=== PATIENT | male | born 1950 | race Two or more races ===

== ENCOUNTER 2023-12-31 13:56 | Emergency (ER) | payer OTHER ==
[~2023-12-31] VITALS: Ht 175.3 cm; Wt 71.0 kg
[~2023-12-31 13:56] MED LIST: ASPI1TAB20 PO; ATOR-507 PO; CHOL20007 PO; FAMO20TA10 PO; METO25TA5 PO; TAMS0.4C36 PO; TRAM50TA2 PO; ZOLP10TA PO
[2023-12-31] MEDS: SODIUM CHLORIDE 0.9% 1,000 ML IVB ONE (16:30)
[2023-12-31 16:41] LABS: Basophils # (auto) 0.1 10 ^3/uL (0-0.2); Basophils % (auto) 1.7 % (0.0-2.0); Eosinophils # (auto) 0.3 10 ^3/uL (0-0.8); Eosinophils % (auto) 4.5 % (0.0-7.0); Hematocrit 24.5 % (41.0-53.0); Hemoglobin 8.2 g/dL (13.5-17.5); Lymphocytes # (auto) 0.8 10 ^3/uL (0.4-5.4); Lymphocytes % (auto) 12.3 % (10.0-50.0); Mean Corpuscular Hemoglobin 27.9 pg (28.0-32.0); Mean Corpuscular Hgb Conc. 33.3 g/dL (32.0-36.0); Mean Corpuscular Volume 83.6 fL (80.0-100.0); Monocytes # (auto) 0.6 10 ^3/uL (0-1.3); Monocytes % (auto) 8.6 % (0.0-12.0); Neutrophils # (auto) 4.7 10 ^3/uL (1.6-8.6); Neutrophils % (auto) 72.9 % (37.0-80.0); Red Blood Cells 2.93 10^6/uL (4.5-5.90); Red Cell Distribution Width 17.9 % (11.8-14.3); White Blood Cell 6.5 10^3/uL (4.4-10.8)
[2023-12-31 17:02] LABS: Alanine Aminotransferase 12 U/L (7-40); Albumin 3.9 g/dL (3.2-4.8); Alkaline Phosphatase 87 U/L (46-116); Anion Gap 11 (5-15); Aspartate Aminotransferase 10 U/L (13-40); BUN/Creatinine Ratio 17.3 (10.0-20.0); Bilirubin, Total 0.8 mg/dL (0.2-1.0); Blood Urea Nitrogen 23 mg/dL (9-23); Calcium 9.5 mg/dL (8.5-10.1); Carbon Dioxide 19 mmol/L (20-30); Chloride 108 mmol/L (98-107); Glucose 143 mg/dL (74-106); Potassium 4.4 mmol/L (3.5-5.1); Sodium 138 mmol/L (136-145); Total Protein 6.5 g/dL (5.7-8.2)
[2023-12-31 17:14] LABS: INR 1.13 (0.9-1.15); Partial Thromboplastin Time 28.2 SEC (24.5-34.5); Prothrombin Time 11.9 sec (9.3-11.8)
[2023-12-31 20:19] VITALS: BP 142/54; PULSE 72; RESP 18; TEMP 97.9; O2SAT 97
[2024-01-01] MEDS ORDERED: ceFAZolin 1GM/50ML 50 ML IV ONE (06:00)
== END 2023-12-31 20:43 | disposition short-term general hospital (02) ==
LOC: ER 13:56
DX: R31.0 Gross hematuria (principal); I10 Essential (primary) hypertension; Z96.0 Presence of urogenital implants; Z86.73 Personal history of transient ischemic attack (TIA), and cerebral infarction without residual deficits
CPT/HCPCS: 36415; 74176; 80053; 83880; 85025; 85610; 85730; 86850; 86900; 86901; 96360; 99285; J7030

== ENCOUNTER 2024-11-06 10:20 | Inpatient (IN) | payer OTHER ==
[~2024-11-06] VITALS: Ht 175.3 cm; Wt 61.3 kg
[~2024-11-06 10:20] MED LIST changes: -TAMS0.4C36 PO; +TAMS0.4C39 PO
--- NOTE | 2024-11-06 10:43 | ECG ---
[facility] Test Date: 2024-11-06 Test Time: 10:22:05 Pat Name: GUSTAVO LOW Department: ED Room: Gender: M Manager Acute: ISAI : 1950 Requested By: QUIANA ANDERSON Order Number: [id number] Reading MD: Prabhu Harrell Measurements Intervals Atkins Rate: 70 P: 0 MA: 0 QRS: 81 QRSD: 199 T: -75 QT: 496 QTc: 536 Interpretive Statements Accelerated junctional rhythm LVH with secondary repolarization abnormality Prolonged QT interval Baseline wander in lead(s) II,III,aVF,V5 Electronically Signed On 11-06-2024 13:17:04 PDT by Prabhu Harrell Please click the below link to view image of tracing.
[2024-11-06 10:50] VITALS: PULSE 104; RESP 15; O2SAT 96
[2024-11-06 10:52] LABS: Basophils # (auto) 0.1 10 ^3/uL (0-0.2); Basophils % (auto) 0.5 % (0.0-2.0); Eosinophils # (auto) 0.1 10 ^3/uL (0-0.8); Eosinophils % (auto) 0.7 % (0.0-7.0); Hematocrit 32.2 % (41.0-53.0); Hemoglobin 10.5 g/dL (13.5-17.5); Lymphocytes # (auto) 0.7 10 ^3/uL (0.4-5.4); Lymphocytes % (auto) 5.7 % (10.0-50.0); Mean Corpuscular Hemoglobin 27.6 pg (28.0-32.0); Mean Corpuscular Hgb Conc. 32.5 g/dL (32.0-36.0); Mean Corpuscular Volume 84.9 fL (80.0-100.0); Monocytes % (auto) 8.3 % (0.0-12.0); Neutrophils # (auto) 10.7 10 ^3/uL (1.6-8.6); Neutrophils % (auto) 84.8 % (37.0-80.0); Platelet Count (auto) 268 10^3/uL (140-450); Red Blood Cells 3.79 10^6/uL (4.5-5.90); Red Cell Distribution Width 15.2 % (11.8-14.3); White Blood Cell 12.7 10^3/uL (4.4-10.8)
--- NOTE | 2024-11-06 10:58 | DVH ---
EXAM: XY CHEST PORTABLE HISTORY: syncope COMPARISON: None TECHNIQUE: Portable upright AP view of the chest was performed. FINDINGS: No pneumothorax, consolidative infiltrates, or pulmonary edema. The heart is borderline enlarged. The re are postoperative changes of median sternotomy and left chest AICD. IMPRESSION: Postoperative changes of the heart without evidence of acute intrathoracic process.
--- NOTE | 2024-11-06 11:18 | ED.PDOC ---
HPI (NEURO) HPI Comments 74y M who presents to the ED via EMS for chief complaint of syncope. Per EMS, pt is resident at [facility] recovering from hip surgery 2 weeks prior and while doing PT, pt had syncopal episode. Pt was assisted by staff and noted pt was not responding for a few seconds but became alert and oriented while sitting on the ground. EMS was called to the scene and upon arrival, pt was alert and oriented and EKG was done which showed STEMI and pt was brought to the ED with noted pt being given 324 ASA prior to ED arrival. Pt in the ED, denies any chest pain upon arrival and repeat EKG did not show STEMI and STEMI alert was cancelled. Pt now in the ED, otherwise denies any other symptoms. Pt has noted stable vitals in the ED, with noted temp of 97/9 F, BP 117/65, 02 sat of 98% on room air, and heart rate of 76. Pt has noted history of CABG, AFIB on pacemaker, HTN , DM, and HLD. Pt denies any other symptoms at this time. Chief Complaint: Syncope Time Seen by MD: 11:14 Primary Care Provider: JABARI Reviewed Notes: Home Health Attendant Notes, Medications, Allergies Information Source: Patient Mode of Arrival: EMS Brought in by: EMS Past Medical History PAST MEDICAL HISTORY: CAD, CHF, CVA, HTN Surgical History: CABG, Hernia Repair Surgical History (Other): Hip surgery Family History Family History: Unknown Social History Smoker: Non-Smoker Alcohol: Occasionally Drugs: Denies Drug Use Lives In: Home Constitutional: reports: malaise, weakness; denies: chills, diaphoresis, fatigue, fever, sweats, others EENTM: denies: blurred vision, double vision, ear bleeding, ear discharge, ear drainage, ear pain, ear ringing, eye pain, eye redness, hearing loss, mouth pain, mouth swelling, nasal discharge, nose bleeding, nose congestion, nose pain, photophobia, tearing, throat pain, throat swelling, voice changes, others Respiratory: denies: cough, hemoptysis, orthopnea, SOB at rest, shortness of breath, SOB with excertion, stridor, wheezing, others Cardiovascular: denies: chest pain, dizzy spells, diaphoresis, Dyspnea on exertion, edema, irregular heart beat, left arm pain, lightheadedness, palpitations, PND, syncope, others Gastrointestinal: denies: abdomen distended, abdominal pain, blood streaked bowels, constipated, diarrhea, dysphagia, difficulty swallowing, hematemesis, melena, nausea, poor appetite, poor fluid intake, rectal bleeding, rectal pain, vomiting, others Genitourinary: denies: burning, dysuria, flank pain, frequency, hematuria, incontinence, penile discharge, penile sore, pain, testicle pain, testicle swelling, urgency, others Neurological: reports: others (syncope); denies: dizziness, fainting, headache, left sided numbness, left sided weakness, numbness, paresthesia, pre-existing deficit, right sided numbness, right sided weakness, seizure, speech problems, tingling, tremors, weakness Musculoskeletal: denies: back pain, gout, joint pain, joint swelling, muscle pain, muscle stiffness, neck pain, others Integumetry: denies: bruises, change in color, change in hair/nails, dryness, l aceration, lesions, lumps, rash, wounds, others Allergic/Immunocompromised: denies: Difficulty Healing, Frequent Infections, Hives, Itching, others Hematologic/Lymphatic: denies: anemia, blood clots, easy bleeding, easy bruising, swollen glands, others Endocrine: denies: excessive hunger, excessive sweating, excessive thirst, excessive urination, flushing, intolerance to cold, intolerance to heat, unexplained weight gain, unexplained weight loss, others Psychiatric: denies: anxiety, bipolar disorder, depression, hopeless, panic disorder, schizophrenia, sleepless, suicidal, others All Other Systems: Reviewed and Negative Physical Exam General Appearance: No Apparent Distress HEENT: PERRL/EOMI, Other (Moist mucous membranes) Neck: Full Range of Motion, Normal Inspection Respiratory: Lungs Clear, No Accessory Muscle Use, No Respiratory Distress, Normal Breath Sounds Cardiovascular: No Edema, No JVD, Regular Rate/Rhythm Breast Exam: Deferred Gastrointestinal: Non Tender, Soft Genitalia: Deferred Pelvic: Deferred Rectal: Deferred Extremities: Normal inspection, Normal range of motion, Non-tender, No pedal edema Neurologic: Alert (Oriented x4), Normal Affect, Normal Mood, Other (Moves all extremities) Cerebellar Function: NOT DONE Reflexes: NOT DONE Skin: Dry, Pallor, Warm Lymphatic: NOT DONE EKG EKG : Comments Accelerated junctional rhythm, rate 70, QRS prolonged at 199, QTC prolonged at 536, LVH with secondary repolarization abnormality, nonspecific ST elevation in leads 2, 3, AVF and upsloping ST elevations in leads V1 through V 3 Was a procedure done? Was a procedure done?: No Differential Diagnosis (SZ) Seizure: CVA/TIA, Hypocalcemia, Hypoglycemia, Hyponatremia, Idiopathic, Syncope General Weakness: Anemia, Dehydration, Electrolyte imbalance, Encephalopathy, Hypoglycemia, Hypotension, Myocardial infarction, Renal failure, Other (CHF, arrhythmia) Headache: Closed Head Injury X-Ray, Labs, Meds, VS Vital Signs Date Time Temp Pulse Resp B/P (MAP) Pulse Ox O2 Delivery O2 Flow Rate FiO2 11/06/24 11:21 68 11/06/24 10:25 97.9 76 18 117/65 (82) 98 97.9 11/06/24 10:22 70 Lab Test 11/06/24 12:28 11/06/24 11:25 11/06/24 11:05 11/06/24 10:25 Range/Units Urine Color Pending Urine Clarity Pending Urine pH Pending Urine Specific [place] Pending Urine Protein Pending Urine Ketones Pending Urine Blood Pending Urine Nitrite Pending Urine Bilirubin Pending Urine Urobilinogen Pending Urine Leukocyte Esterase Pending Urine RBC Pending Urine Microscopic WBC Pending Urine Squamous Epithelial Cells Pending Urine Bacteria Pending Urine Glucose Pending Troponin I High Sensitivity 29 24 </=54 ng/L Lactic Acid Level 1.7 0.4-2.0 mmol/L White Blood Count 12.7 H 4.4-10.8 10^3/uL Red Blood Count 3.79 L 4.5-5.90 10^6/uL Hemoglobin 10.5 L 13.5-17.5 g/dL Hematocrit 32.2 L 41.0-53.0 % Mean Corpuscular Volume 84.9 80.0-100.0 fL Mean Corpuscular Hemoglobin 27.6 L 28.0-32.0 pg Mean Corpuscular Hemoglobin Concent 32.5 32.0-36.0 g/dL Red Cell Distribution Width 15.2 H 11.8-14.3 % Platelet Count 268 140-450 10^3/uL Mean Platelet Volume 7.7 6.9-10.8 fL Neutrophils (%) (Auto) 84.8 H 37.0-80.0 % Lymphocytes (%) (Auto) 5.7 L 10.0-50.0 % Monocytes (%) (Auto) 8.3 0.0-12.0 % Eosinophils (%) (Auto) 0.7 0.0-7.0 % Basophils (%) (Auto) 0.5 0.0-2.0 % Neutrophils # (Auto) 10.7 H 1.6-8.6 10 ^3/uL Lymphocytes # (Auto) 0.7 0.4-5.4 10 ^3/uL Monocytes # (Auto) 1.0 0-1.3 10 ^3/uL Eosinophils # (Auto) 0.1 0-0.8 10 ^3/uL Basophils # (Auto) 0.1 0-0.2 10 ^3/uL Nucleated Red Blood Cells 0.0 % Sodium Level Pending Potassium Level Pending Chloride Level Pending Carbon Dioxide Level Pending Anion Gap Pending Blood Urea Nitrogen Pending Creatinine Pending Glomerular Filtration Rate Calc Pending BUN/Creatinine Ratio Pending Serum Glucose Pending Calcium Level Pending Total Bilirubin Pending Aspartate Amino Transferase (AST) Pending Alanine Aminotransferase (ALT) Pending Alkaline Phosphatase Pending B-Type Natriuretic Peptide 467.71 0-100 pg/mL Total Protein Pending Albumin Pending Current Medications Medications (Trade) Dose Ordered Sig/Deny Route Start Time Stop Time Status Last Admin Sodium Chloride 500 ml @ 500 mls/hr Q1H ONCE IV 11/06/24 10:45 11/06/24 11:44 DC 11/06/24 11:20 [place] [id number] Ph: [phone] DIAGNOSTIC IMAGING Diagnostic Imaging Report : [id number] Signed PATIENT: GUSTAVO LOW ACCT: [id number] UNIT: [id number] : 1950 LOC: ER ROOM / BED: / AGE / SEX: 74 / M ADM STATUS: REG ER SERVICE 1031 ORDERING PHYSICIAN: QUIANA SALDAÑA MD PROCEDURE(s): CXRP - CHEST PORTABLE REASON: syncope ORDER NUMBER(s): [id number], ACCESSION NUMBER(s): [id number] EXAM: XY CHEST PORTABLE HISTORY: syncope COMPARISON: None TECHNIQUE: Portable upright AP view of the chest was performed. FINDINGS: No pneumothorax, consolidative infiltrates, or pulmonary edema. The heart is borderline enlarged. There are postoperative changes of median sternotomy and left chest AICD. IMPRESSION: Postoperative changes of the heart without evidence of acute intrathoracic process. ATED BY: MATTHEW BOLIVAR MD DICTATED DATE/TIME: 11/06/24 105 SIGNED BY: MATTHEW BOLIVAR MD SIGNED DATE/TIME: 11/06/24 105 CC: PROCEDURE(s): HWOCT - HEAD WITHOUT CONTRAST REASON: syncope ORDER NUMBER(s): [id number], ACCESSION NUMBER(s): [id number] EXAM: CT HEAD WITHOUT CONTRAST HISTORY: syncope COMPARISON: None TECHNIQUE: Axial images of the head were obtained and reformatted in coronal and sagittal planes. All CT scans at this medical facility are performed using dose modulation techniques as appropriate to a performed exam including the following: Automated exposure control was utilized; adjustment of the MA and/or KV according to patient size; and use of iterative reconstruction technique. CT Dose: CTDI volume is 91 mGy. Dose-length product is 1986 mGy*cm FINDINGS: There is no evidence of acute intracranial hemorrhage, mass, mass effect midline shift. There is no hydrocephalus or extra-axial fluid collection. There is a large right frontal parietal lobe chronic infarct with associated enc ephalomalacia. There is a small chronic infarct in the right occipital lobe and right thalamus. There are chronic microvascular ischemic changes in the supratentorial white matter. The visualized paranasal sinuses and mastoid air cells are clear. The calvarium is intact. IMPRESSION: 1. No acute intracranial process. 2. Chronic ischemic changes as described above. HS:Y X-Ray, Labs, Meds, VS Comment 74-year-old male with a history of hypertension, CAD status post quadruple bypass, CHF with 25% ejection fraction and status post recent hip surgery brought in by EMS after a syncopal episode while undergoing physical therapy Vitals unremarkable Exam unremarkable Rhythm strip independently interpreted by me: Accelerated junctional rhythm, rate 70 CT head and chest x-ray unremarkable CBC remarkable for WBC 12.7, CMP pending, BNP 467.71, troponin negative x2, lactate normal, UA pending Patient treated with the following in the ED: Case discussed with Dr. Cid on-call for STEMI, who reviewed the patient's EKG and determined the inferior ST-elevation was nonspecific, not consistent with STEMI. He recommended cardiac workup with serial troponins and repeat EKG. Repeat EKG was unchanged. 500 cc 0.9 normal saline IV bolus On re-evaluation, patient was alert with stable vitals. Old EKG dated 11/16/2015 showed a sinus or ectopic atrial rhythm, PVCs, prolonged [place] interval, incomplete left bundle-branch block, LVH with secondary repolarization abnormality, anterior ST-elevation, probably due to LVH. Patient has significantly different EKG findings today, which may have contributed to his syncopal episode. Plan is to admit the patient for Cardiology evaluation. Time of 1ST Reevaluation: 11:45 Reevaluation 1ST: Unchanged Patient Education/Counseling: Diagnosis, Treatment Family Education/Counseling: No Family Present Departure 1 Departure Time of Disposition: 12:30 Impression: Primary Impression: Syncope Qualified Codes: R55 - Syncope and collapse Additional Impression: Junctional rhythm Disposition: ADMITTED INPATIENT Admit to: Tele Condition: Guarded Critical Care Note Critical Care Time?: No Stability Stability form required: No Heart Score Heart Score: Heart Score Response (Comments) Value History Slightly Suspicious [address]-Deviation 2 Age >65 2 Risk Factors >3 or Hx ASHD 2 Troponin Normal limit 0 Total 6 I personally scribed for QUIANA SALDAÑA MD ([email or web address]) on 11/06/24 at 11:18. Electronically submitted by V[facility]nu Sol[facility] ([facility] I personally scribed for QUIANA SALDAÑA MD ([email or web address]) on 11/06/24 at 12:39. Electronically submitted by Vishnu Solorio ([facility] QUIANA SALDAÑA MD November 06, 2024 11:18
[2024-11-06] MEDS: SODIUM CHLORIDE 0.9% 500 ML IV ONE (11:20)
--- NOTE | 2024-11-06 11:26 | DVH ---
EXAM: CT HEAD WITHOUT CONTRAST HISTORY: syncope COMPARISON: None TECHNIQUE: Axial images of the head were obtained and reformatted in coronal and sagittal planes. All CT scans at this medical facility are performed using dose modulation techniques as appropriate t o a performed exam including the following: Automated exposure control was utilized; adjustment of th e MA and/or KV according to patient size; and use of iterative reconstruction technique. CT Dose: CTDI volume is 91 mGy. Dose-length product is 1986 mGy*cm FINDINGS: There is no evidence of acute intracranial hemorrhage, mass, mass effect midline shift. There is no h ydrocephalus or extra-axial fluid collection. There is a large right frontal parietal lobe chronic i nfarct with associated encephalomalacia. There is a small chronic infarct in the right occipital lobe and right thalamus. There are chronic microvascular ischemic changes in the supratentorial white mat ter. The visualized paranasal sinuses and mastoid air cells are clear. The calvarium is intact. IMPRESSION: 1. No acute intracranial process. 2. Chronic ischemic changes as described above. HS:Y
[2024-11-06 12:44] LABS: Urine Bacteria FEW /hpf (None Seen); Urine Blood Negative /uL (Negative); Urine Budding Yeast MANY /hpf (None Seen); Urine Clarity Turbid (Clear); Urine Color Light-Yellow (Yellow); Urine Protein, UAD 1+ (Negative); Urine Specific Gravity 1.019 (1.001-1.035); Urine Squamous Epithelial Cell None Seen /hpf (<5); Urine Urobilinogen Normal (Negative); Urine WBC 80 /HPF (0-3)
[2024-11-06 12:52] LABS: Albumin 3.6 g/dL (3.2-4.8); Alkaline Phosphatase 110 U/L (46-116); Anion Gap 12 (5-15); BUN/Creatinine Ratio 30.7 (10.0-20.0); Bilirubin, Total 0.4 mg/dL (0.2-1.0); Calcium 9.4 mg/dL (8.7-10.4); Carbon Dioxide 19 mmol/L (20-31); Chloride 108 mmol/L (98-107); Glucose 275 mg/dL (74-106); Potassium 3.6 mmol/L (3.5-5.1); Sodium 139 mmol/L (136-145); Total Protein 6.1 g/dL (5.7-8.2)
[2024-11-06 12:53] LABS: Alanine Aminotransferase 155 U/L (7-40); Aspartate Aminotransferase 101 U/L (13-40); Blood Urea Nitrogen 55 mg/dL (9-23)
[2024-11-06] MEDS ORDERED: NITROGLYCERIN 0.4 MG SL TAB SL PRN (13:30)
[2024-11-06] MEDS ORDERED: ONDANSETRON HCL 4 MG/2 ML VIAL IV PRN (13:30)
[2024-11-06] MEDS ORDERED: MORPHINE SULFATE INJ 2 MG/ml SYRG IV PRN (13:30)
[2024-11-06] MEDS ORDERED: DEXTROSE (50%) 50ML SYRG IV PRN (13:30)
[2024-11-06] MEDS ORDERED: PIPERACILLIN-TAZOB 3.375GM 100 ML IV SCH (14:00)
[2024-11-06] MEDS ORDERED: CARV12.544 PO (14:12)
[2024-11-06] MEDS ORDERED: FURO20TA4 PO (14:12)
[2024-11-06] MEDS ORDERED: HYDR25TA87 PO (14:12)
[2024-11-06] MEDS ORDERED: FAMO-12 PO (14:12)
[2024-11-06] MEDS ORDERED: ESCI1TAB36 PO (14:12)
[2024-11-06] MEDS ORDERED: GABA-1250 PO (14:12)
[2024-11-06] MEDS ORDERED: FERR1TAB8 PO (14:12)
[2024-11-06] MEDS ORDERED: APIX2.5T PO (14:12)
[2024-11-06] MEDS ORDERED: AMIO200T13 PO (14:12)
[2024-11-06] MEDS ORDERED: ATOR-47 PO (14:12)
[2024-11-06] MEDS ORDERED: CHOL1TAB30 PO (14:12)
[2024-11-06] MEDS ORDERED: LISI20TA56 PO (14:12)
[2024-11-06] MEDS ORDERED: traMADol HCL 50 MG TAB PO PRN (14:15)
--- NOTE | 2024-11-06 14:35 | DVHHP2 ---
History of Present Illness Reason for Visit: Syncope History of Present Illness Justin Urena is a 74-year-old male with past medical history of CAD status post CABG, hypertension, hyperlipidemia, diabetes type 1, CVA x2 with no deficits, diabetic nephropathy, AFib, CKD, hernia repair, left hip surgery 2-3 years ago at [facility], prostate cancer status post prostatectomy who presents to the ED after syncopal episode. Patient resides at [facility] and states that when he was walking with physical therapy his legs gave out and was caught by the staff. Patient denies any head strike or loss of consciousness. Patient does state that he uses a front wheel walker to ambulate. He also reports that he is currently taking Eliquis and is compliant with his medications. Patient also reports that he had a pacemaker placed 6 months ago at [facility]. Patient denies any recent sick contacts, recent travels, lightheadedness, dizziness, abdominal pain, nausea, vomiting, diarrhea, chest pain, shortness of breath, fever, or chills. Cardiovascular: AFIB, CAD, HTN, hyperipidemia [employer]: CVA Renal/: Chronic renal insuff Endocrine: Diabetes Past Medical History Diabetic nephropathy Prostate cancer Past Surgical History: CABG, Hernia Repair, Other (Pacemaker, prostatectomy, and left hip surgery) Family History: None Smoke: No ALCOHOL: none Drugs: None Lives: [facility] Domestic Violence: Neg Review of Systems Constitutional: Yes: Other (Syncope) Allergies: Coded Allergies: NO KNOWN ALLERGIES (Unverified , 11/16/15) Medications Current Medications Medications Dose Ordered Sig/Deny Route Start Time Stop Time Status Last Admin Dose Admin Diagnostic Test (Pha) 1 strip ACHS 11/06/24 17:00 UNV Insulin Human Regular ACHS SC 11/06/24 17:00 UNV Dextrose 50 ml UD PRN IV 11/06/24 13:30 UNV Ondansetron HCl 4 mg Q4HP PRN IV 11/06/24 13:30 UNV Acetaminophen 650 mg Q6HP PRN PO 11/06/24 13:30 UNV Nitroglycerin 0.4 mg Q5MINP PRN SL 11/06/24 13:30 UNV Morphine Sulfate 2 mg Q30M PRN IV 11/06/24 13:30 UNV Piperacillin Sod/ Tazobactam Sod 100 ml @ 25 mls/hr Q8HR IV 11/06/24 14:00 UNV Exam Vital Signs Vital Signs Date Time Temp Pulse Resp B/P (MAP) Pulse Ox O2 Delivery O2 Flow Rate FiO2 11/06/24 11:21 68 11/06/24 10:25 97.9 18 117/65 (82) 98 97.9 General Appearance: Alert, Oriented X3, Cooperative, No acute distress HEENT: Atraumatic, PERRLA, EOMI, Mucous membr. moist/pink Respiratory: Clear to auscultation, Normal air movement Cardiovascular: Normal S1, Normal S2, No murmurs Abdominal: Normal bowel sounds, Soft, No tenderness Extremities: No clubbing, No cyanosis, No edema, Normal pulses, No tenderness/swelling Neuro: Normal speech, Normal tone, Sensation intact Psych/Mental Status: Mental status NL, Mood NL Labs/Xrays Labs Test 11/06/24 12:28 11/06/24 11:25 11/06/24 11:05 11/06/24 10:25 Range/Units Urine Color Light-yellow Yellow Urine Clarity Turbid H Clear Urine pH 6.0 5.0-9.0 Urine Specific [place] 1.019 1.001-1.035 Urine Protein 1+ H Negative Urine Ketones Negative Negative Urine Blood Negative Negative /uL Urine Nitrite 2+ H Negative Urine Bilirubin Negative Negative Urine Urobilinogen Normal Negative mg/dL Urine Leukocyte Esterase 3+ Negative /uL Urine RBC 661 0 - 3 /hpf Urine Microscopic WBC 80 H 0-3 /HPF Urine Squamous Epithelial Cells None seen <5 /hpf Urine Bacteria Few H None Seen /hpf Urine Yeast (Budding) Many None Seen /hpf Urine Glucose 3+ H Normal mg/dL Troponin I High Sensitivity 29 </=54 ng/L Lactic Acid Level 1.7 0.4-2.0 mmol/L White Blood Count 12.7 H 4.4-10.8 10^3/uL Red Blood Count 3.79 L 4.5-5.90 10^6/uL Hemoglobin 10.5 L 13.5-17.5 g/dL Hematocrit 32.2 L 41.0-53.0 % Mean Corpuscular Volume 84.9 80.0-100.0 fL Mean Corpuscular Hemoglobin 27.6 L 28.0-32.0 pg Mean Corpuscular Hemoglobin Concent 32.5 32.0-36.0 g/dL Red Cell Distribution Width 15.2 H 11.8-14.3 % Platelet Count 268 140-450 10^3/uL Mean Platelet Volume 7.7 6.9-10.8 fL Neutrophils (%) (Auto) 84.8 H 37.0-80.0 % Lymphocytes (%) (Auto) 5.7 L 10.0-50.0 % Monocytes (%) (Auto) 8.3 0.0-12.0 % Eosinophils (%) (Auto) 0.7 0.0-7.0 % Basophils (%) (Auto) 0.5 0.0-2.0 % Neutrophils # (Auto) 10.7 H 1.6-8.6 10 ^3/uL Lymphocytes # (Auto) 0.7 0.4-5.4 10 ^3/uL Monocytes # (Auto) 1.0 0-1.3 10 ^3/uL Eosinophils # (Auto) 0.1 0-0.8 10 ^3/uL Basophils # (Auto) 0.1 0-0.2 10 ^3/uL Nucleated Red Blood Cells 0.0 % Sodium Level 139 136-145 mmol/L Potassium Level 3.6 3.5-5.1 mmol/L Chloride Level 108 H 98-107 mmol/L Carbon Dioxide Level 19 L 20-31 mmol/L Anion Gap 12 5-15 Blood Urea Nitrogen 55 H 9-23 mg/dL Creatinine 1.79 H 0.700-1.30 mg/dL Glomerular Filtration Rate Calc 39 >90 mL/min BUN/Creatinine Ratio 30.7 H 10.0-20.0 Serum Glucose 275 H 74-106 mg/dL Calcium Level 9.4 8.7-10.4 mg/dL Total Bilirubin 0.4 0.2-1.0 mg/dL Aspartate Amino Transferase (AST) 101 H 13-40 U/L Alanine Aminotransferase (ALT) 155 H 7-40 U/L Alkaline Phosphatase 110 46-116 U/L B-Type Natriuretic Peptide 467.71 0-100 pg/mL Total Protein 6.1 5.7-8.2 g/dL Albumin 3.6 3.2-4.8 g/dL EXAM: CT HEAD WITHOUT CONTRAST HISTORY: syncope COMPARISON: None TECHNIQUE: Axial images of the head were obtained and reformatted in coronal and sagittal planes. All CT scans at this medical facility are performed using dose modulation techniques as appropriate to a performed exam including the following: Automated exposure control was utilized; adjustment of the MA and/or KV according to patient size; and use of iterative reconstruction technique. CT Dose: CTDI volume is 91 mGy. Dose-length product is 1986 mGy*cm FINDINGS: There is no evidence of acute intracranial hemorrhage, mass, mass effect midline shift. There is no hydrocephalus or extra-axial fluid collection. There is a large right frontal parietal lobe chronic infarct with associated encephalomalacia. There is a small chronic infarct in the right occipital lobe and right thalamus. There are chronic microvascular ischemic changes in the supratentorial white matter. The visualized paranasal sinuses and mastoid air cells are clear. The calvarium is intact. IMPRESSION: 1. No acute intracranial process. 2. Chronic ischemic changes as described above. EXAM: XY CHEST PORTABLE HISTORY: syncope COMPARISON: None TECHNIQUE: Portable upright AP view of the chest was performed. FINDINGS: No pneumothorax, consolidative infiltrates, or pulmonary edema. The heart is borderline enlarged. There are postoperative changes of median sternotomy and left chest AICD. IMPRESSION: Postoperative changes of the heart without evidence of acute intrathoracic process. Assessment/Plan Assessment/Plan Assessment Autonomic imbalance Leukocytosis secondary to a UTI Anemia Acute on chronic renal insufficiency Transaminitis Hyperglycemia with history of diabetes type 1 Pacemaker placed 6 months ago at [facility] Chronic [place] catheter History of CAD status post CABG History of hypertension History of hyperlipidemia History of CVA x2 with no deficits History of diabetic nephropathy History of AFib History of hernia repair History of left hip surgery History of prostate cancer status post prostatectomy Plan Admit to tele IV antibiotics -ceftriaxone Antiemetics Pain management UA EKG noted NS 0.5 L given ED Troponin Blood cultures Lactic level CT head noted Chest x-ray noted BNP Hemoglobin A1c ISS and Accu-Cheks Ultrasound abdomen Echo ordered Diet Orthostatics Home medications reconciled DVT prophylaxis-patient on Eliquis PUD prophylaxis-PPIs Discussed plan of care with patient and nurse Plan discussed with: Patient My Orders Orders - DANIEL ALVAREZ Procedure Category Date Status Time Echo 2d Mode Cardiac US 11/06/24 Logged DOP 13:26 Hemoglobin A1c LAB 11/06/24 In Process 13:26 Glucose Blood PHA 11/06/24 Logged (Accu-Chek Comfort 17:00 Insulin R (Human) PHA 11/06/24 Logged (Insulin R) 17:00 Dextrose 50% Syringe PHA 11/06/24 Logged 13:30 Admit ADMIT 11/06/24 Transmitted 13:26 Allergies LEONELA 11/06/24 In Process 13:26 Code Status CODE 11/06/24 Transmitted 13:26 Ondansetron Hcl PHA 11/06/24 Logged (Zofran) 13:30 Complete Blood Count LAB 11/07/24 Verified 04:00 Comprehensive LAB 11/07/24 Verified Metabolic Panel 04:00 Cardiac DIET 11/06/24 Transmitted Diet-2gna,Lofat,Lochol Lunch Acetaminophen Tablet PHA 11/06/24 Logged (Tylenol Tablet) 13:30 Nitroglycerin PHA 11/06/24 Logged Sublingual (Ntrostat 13:30 Morphine Sulfate PHA 11/06/24 Logged Injection 13:30 Stat Ekg For Chest [facility] 11/06/24 In Process Pain 13:26 Notify Md Of Changes [facility] 11/06/24 In Process From Base 13:26 Manual Winder For [facility] 11/06/24 In Process 24 Hours 13:26 Emergency Dysrhythmia [facility] 11/06/24 In Process Protocol 13:26 Rhythm Strips Once [facility] 11/06/24 In Process Every Shift 13:26 Oxygen By Nasal RT 11/06/24 Transmitted Cannula 13:26 Piperacillin-Tazob PHA 11/06/24 Logged 3.375gm (Zosyn 3.375g 14:00 Abdomen Complete US 11/06/24 Logged Sonogram 13:26 Date of Service: November 06, 2024 Billing Provider: DANIEL ALVAREZ Common Visit Codes: [id number] INP/OBS CARE (HIGH) DANIEL ALVAREZ November 06, 2024 14:35
--- NOTE | 2024-11-06 14:59 | DVH ---
INDICATION: Abdominal pain r/o pancreatitis TECHNIQUE: Multiple real-time sonographic images of the abdomen were obtained. COMPARISON: None FINDINGS: The liver is slightly increased in echogenicity. The liver measures 14 cm. The gallbladder wall measures 0.1 cm and is unremarkable. No gallstones or sludge is seen. The com mon bile duct is not well visualized due to obscuration from bowel gas. The right kidney measures 9.6 cm. No hydronephrosis. The left kidney measures 11.4 cm. No hydroneph rosis. The spleen measures 9.6 cm, within normal limits. The echogenicity is within normal limits. The pancreas is not well visualized due to obscuration from bowel gas. The visualized portions of the IVC and aorta are grossly unremarkable. IMPRESSION: Normal exam of the abdomen.
[2024-11-06] MEDS ORDERED: ZOLPIDEM TARTRATE 5 MG TAB PO PRN (15:45)
[2024-11-06] MEDS: cefTRIAXone 1GM/50ML D5W 50 ML IV SCH (15:52)
[2024-11-06] MEDS: ACCU-CHEK COMFORT CURVE STRIP VI SCH (17:29)
[2024-11-06] MEDS: InsuLIN REG 1unit/0.01ml Soln (100units/ml) SC SCH (17:33)
[2024-11-06] MEDS ORDERED: PATIENTS OWN MEDICATION (Atorvastatin Calcium (Lipitor) 1 TAB) PO SCH (18:00)
[2024-11-06] MEDS ORDERED: PATIENTS OWN MEDICATION (Zolpidem Tartrate (Ambien) 1 TAB) PO SCH (18:00)
[2024-11-06 18:35] VITALS: BP 135/56; PULSE 77; RESP 18; TEMP 97.8; O2SAT 95
[2024-11-06 18:36] VITALS: PULSE 68; RESP 18; O2SAT 95
[2024-11-06 20:00] VITALS: PULSE 71; PULSE 78; RESP 18; O2SAT 92
[2024-11-06 21:00] VITALS: BP 105/50; PULSE 71; RESP 18; TEMP 98.3; O2SAT 92
[2024-11-06] MEDS ORDERED: FAMOTIDINE 20 MG TAB PO SCH (22:00)
[2024-11-06] MEDS: CARVEDILOL 12.5 MG TAB PO SCH (22:12)
[2024-11-06] MEDS: GABAPENTIN 300 MG CAP PO SCH (22:13)
[2024-11-06] MEDS: ATORVASTATIN 20 MG TAB PO SCH (22:13)
[2024-11-06] MEDS: METOPROLOL TARTRATE 25 MG TAB PO SCH (22:14)
[2024-11-06] MEDS: APIXABAN 2.5 MG TAB PO SCH (22:15)
--- NOTE | 2024-11-06 23:41 | DVHSR ---
APPROVED REPORT EXAM: Two-dimensional and M-mode echocardiogram with Doppler and color Doppler. Blood Pressure: 117/65 mmHg INDICATION Syncope BRIEF HISTORY CAD Surgery/Intervention Pacemaker: CABG: RISK FACTORS Height: 5'9, Weight: 150 DIMENSIONS LVDd5.3 (3.8-5.7cm)LA (2D)4.7 (1.9-4.0cm)Aortic Root3.9 (2.0-3.7cm) LVDs5.0 (2.5-4.0cm)LA (MM) (1.9-4.0cm)Aortic Cusp Exc1.4 (1.5-2.0cm) EF (%) 15.0 (55-70%)Rt. Atrium3.7 (1.9-4.0cm)Asc. Aorta cm IVSd0.8 (0.7-1.1cm)RV (D)4.1 (1.8-2.4cm) PWd0.6 (0.7-1.1cm) Mitral Valve MitralMitral Stenosis E wave0.92m/sMV Mean GR.2mmHg A wavem/sMV Peak GR.79mmHg E/A ratio0.02D MVAcm2 DECEL [id number] 1/2 Timems Aortic Valve Aortic ValveAortic Stenosis V10.98m/Mark Mean GR.4mmHg V21.24m/Mark Peak GR.6mmHg LVOT Diameter2.5 (1.8-2.4cm)Doppler AVA3.88cm2 Pulmonic Valve V21.15m/s Tricuspid Valve TR Velocity2.73m/s [id number] Conclusion Left ventricular is dilated Left ventricular systolic function severely depressed Ejection fraction is estimated at 15% There is interventricular septal wall dyskinesis There is [id number] mitral regurgitation There is [id number]-[id number] tricuspid regurgitation Aortic valve is sclerotic without evidence of stenosis There is a pacing/ICD wire in the right heart cavity
[2024-11-07] VITALS (11 sets, daily range): BP systolic 90–115; BP diastolic 49–61; PULSE 61–76; RESP 16–19; TEMP 97.5–98.6; O2SAT 93–98
[2024-11-07] MEDS: FERROUS SULFATE 325mg EC TAB PO SCH (05:57)
[2024-11-07 06:04] LABS: Basophils # (auto) 0 10 ^3/uL (0-0.2); Basophils % (auto) 0.3 % (0.0-2.0); Eosinophils # (auto) 0.1 10 ^3/uL (0-0.8); Eosinophils % (auto) 0.5 % (0.0-7.0); Hematocrit 34.3 % (41.0-53.0); Hemoglobin 11.2 g/dL (13.5-17.5); Lymphocytes # (auto) 0.9 10 ^3/uL (0.4-5.4); Lymphocytes % (auto) 6.1 % (10.0-50.0); Mean Corpuscular Hgb Conc. 32.5 g/dL (32.0-36.0); Monocytes # (auto) 0.9 10 ^3/uL (0-1.3); Monocytes % (auto) 5.9 % (0.0-12.0); Neutrophils # (auto) 12.9 10 ^3/uL (1.6-8.6); Neutrophils % (auto) 87.2 % (37.0-80.0); Platelet Count (auto) 275 10^3/uL (140-450); Red Blood Cells 3.99 10^6/uL (4.5-5.90); Red Cell Distribution Width 14.9 % (11.8-14.3); White Blood Cell 14.8 10^3/uL (4.4-10.8)
[2024-11-07 06:33] LABS: Albumin 3.5 g/dL (3.2-4.8); Alkaline Phosphatase 110 U/L (46-116); Anion Gap 12 (5-15); BUN/Creatinine Ratio 26.1 (10.0-20.0); Bilirubin, Total 0.4 mg/dL (0.2-1.0); Calcium 9.1 mg/dL (8.7-10.4); Carbon Dioxide 20 mmol/L (20-31); Potassium 3.9 mmol/L (3.5-5.1); Sodium 139 mmol/L (136-145); Total Protein 5.8 g/dL (5.7-8.2)
[2024-11-07 06:49] LABS: Alanine Aminotransferase 262 U/L (7-40); Aspartate Aminotransferase 184 U/L (13-40); Blood Urea Nitrogen 46 mg/dL (9-23); Chloride 107 mmol/L (98-107); Glucose 182 mg/dL (74-106)
[2024-11-07] MEDS ORDERED: PATIENTS OWN MEDICATION (Ferrous Sulfate (Gnp Iron) 1 TAB) PO SCH (07:00)
[2024-11-07] MEDS: hydrALAZINE HCL 25 MG TAB PO SCH (09:36)
[2024-11-07] MEDS: AMIODARONE HCL 200 MG TAB PO SCH (09:37)
[2024-11-07] MEDS: CITALOPRAM HYDROBR 20 MG TAB PO SCH (09:37)
[2024-11-07] MEDS: ASPirin-EC 81 mg tab PO SCH (09:38)
[2024-11-07] MEDS: FAMOTIDINE 20 MG TAB PO SCH (09:38)
[2024-11-07] MEDS: TAMSULOSIN HYDROCHLORIDE 0.4 MG CAP PO SCH (09:38)
[2024-11-07] MEDS ORDERED: PATIENTS OWN MEDICATION (Atorvastatin Calcium 1 TAB) PO SCH (10:00)
[2024-11-07] MEDS ORDERED: PATIENTS OWN MEDICATION (Escitalopram Oxalate 1 TAB) PO SCH (10:00)
[2024-11-07] MEDS ORDERED: PATIENTS OWN MEDICATION (Cholecalciferol (Vitamin D3) 1 TAB) PO SCH (10:00)
[2024-11-07] MEDS ORDERED: CHOLECALCIFEROL (VITD3) 1,000UNIT=25mCg TAB PO SCH (10:00)
[2024-11-07] MEDS: CHOLECALCIFEROL (VITD3) 1,000UNIT=25mCg TAB PO SCH (10:00)
[2024-11-07] MEDS: FUROSEMIDE 20 MG TAB PO SCH (10:01)
--- NOTE | 2024-11-07 12:29 | DVHPN2 ---
Reviewed: Care Plan, H&P, Labs, Medications, Previous Orders, Radiology Changes from previous H/P or p: No Changes Objective Vitals Vital Signs Date Time Temp Pulse Resp B/P (MAP) Pulse Ox O2 Delivery O2 Flow Rate FiO2 11/07/24 10:01 95/60 11/07/24 09:39 70 11/07/24 09:11 98.0 16 94 98.0 11/07/24 08:00 Room Air* 0 21 Intake/Output Intake and Output 11/07/24 07:00 Intake Total 2750 ml Output Total 600 ml Balance 2150 ml Intake Oral 1600 ml IV Total 550 ml Intraperitoneal 600 ml Output Urine Total 600 ml Medications Current Medications Medications Dose Ordered Sig/Deny Route Start Time Stop Time Status Last Admin Dose Admin Diagnostic Test (Pha) 1 strip ACHS 11/06/24 17:00 11/07/24 11:33 1 STRIP Insulin Human Regular ACHS SC 11/06/24 17:00 11/07/24 11:33 2 UNITS Dextrose 50 ml UD PRN IV 11/06/24 13:30 Ondansetron HCl 4 mg Q4HP PRN IV 11/06/24 13:30 Acetaminophen 650 mg Q6HP PRN PO 11/06/24 13:30 Nitroglycerin 0.4 mg Q5MINP PRN SL 11/06/24 13:30 Morphine Sulfate 2 mg Q30M PRN IV 11/06/24 13:30 Amiodarone HCl 200 mg DAILY PO 11/07/24 10:00 11/07/24 09:37 200 MG Apixaban 2.5 mg BID PO 11/06/24 22:00 11/07/24 09:38 2.5 MG Aspirin 81 mg DAILY PO 11/07/24 10:00 11/07/24 09:38 81 MG Carvedilol 12.5 mg BID PO 11/06/24 22:00 11/06/24 22:12 12.5 MG Cholecalciferol 1,000 unit DAILY PO 11/07/24 10:00 Famotidine 20 mg DAILY PO 11/07/24 10:00 11/07/24 09:38 20 MG Famotidine 20 mg HS PO 11/06/24 22:00 UNV Furosemide 20 mg DAILY PO 11/07/24 10:00 11/07/24 10:01 20 MG Gabapentin 300 mg TID PO 11/06/24 22:00 11/07/24 05:57 300 MG Hydralazine HCl 25 mg DAILY PO 11/07/24 10:00 Metoprolol Tartrate 25 mg BID PO 11/06/24 22:00 11/06/24 22:14 25 MG Tamsulosin HCl 0.4 mg DAILY PO 11/07/24 10:00 11/07/24 09:38 0.4 MG Tramadol HCl 50 mg Q8HPRN PRN PO 11/06/24 14:15 Patient Own Medication 1 tab DAILY PO 11/07/24 10:00 UNV Patient Own Medication 1 tab QPM PO 11/06/24 18:00 UNV Patient Own Medication 1 tab DAILY PO 11/07/24 10:00 UNV Patient Own Medication 1 tab DAILY PO 11/07/24 10:00 UNV Patient Own Medication 1 tab QAM PO 11/07/24 07:00 UNV Patient Own Medication 1 tab QPM PO 11/06/24 18:00 UNV Ceftriaxone Sodium 50 ml @ 100 mls/hr DAILY@09 IV 11/06/24 14:30 11/07/24 09:36 100 MLS/HR Atorvastatin Calcium 80 mg HS PO 11/06/24 22:00 11/06/24 22:13 80 MG Zolpidem Tartrate 10 mg QHSP PRN PO 11/06/24 15:45 Ferrous Sulfate 325 mg QAM PO 11/07/24 07:00 11/07/24 05:57 325 MG Cholecalciferol 2,000 unit DAILY PO 11/07/24 10:00 Citalopram Hydrobromide 20 mg DAILY PO 11/07/24 10:00 11/07/24 09:37 20 MG Laboratory Results Laboratory Tests 11/07/24 04:56 Chemistry Test 11/07/24 04:56 Albumin 3.5 g/dL (3.2-4.8) Calcium Level 9.1 mg/dL (8.7-10.4) Total Protein 5.8 g/dL (5.7-8.2) LFT Test 11/07/24 04:56 Alanine Aminotransferase (ALT) 262 U/L (7-40) H Alkaline Phosphatase 110 U/L (46-116) Aspartate Amino Transferase (AST) 184 U/L (13-40) H Total Bilirubin 0.4 mg/dL (0.2-1.0) Urinalysis Test 11/06/24 12:28 Urine Color Light-yellow (Yellow) Urine Clarity Turbid (Clear) H Urine pH 6.0 (5.0-9.0) Urine Specific [place] 1.019 (1.001-1.035) Urine Protein 1+ (Negative) H Urine Ketones Negative (Negative) Urine Blood Negative /uL (Negative) Urine Nitrite 2+ (Negative) H Urine Bilirubin Negative (Negative) Urine Urobilinogen Normal mg/dL (Negative) Urine Leukocyte Esterase 3+ /uL (Negative) Urine RBC 661 /hpf (0 - 3) Urine Microscopic WBC 80 /HPF (0-3) H Urine Squamous Epithelial Cells None seen /hpf (<5) Urine Bacteria Few /hpf (None Seen) H Urine Yeast (Budding) Many /hpf (None Seen) Urine Glucose 3+ mg/dL (Normal) H Microbiology Microbiology Date/Time Source Procedure Growth Status 11/06/24 11:25 Blood Blood Culture - Preliminary NO GROWTH AFTER 24 HOURS OF INCUBATION. Resulted Assessment/Plan Assessment/Plan Septic shock secondary to urinary tract infection: Blood cultures urine cultures Rocephin Syncope Acute on chronic kidney disease Chronic anemia Transaminitis Uncontrolled diabetes History of pacemaker placed six months ago at [facility] CAD status post CABG Hypertension Hypercholesterolemia History of CVA x2 with no deficits AFib History of left hip surgery History of prostate cancer status post prostate Patient came from [place] post acute Time spent 65 minutes Patient is full code Advanced care planning time 20 minutes Plan discussed with: Patient My Orders Orders - DANG TANG MD Procedure Category Date Status Time Urine Bacterial CRISTINA 11/07/24 Verified Culture 12:22 Date of Service: November 07, 2024 Billing Provider: DANG TANG MD Common Visit Codes: [id number] CARE 30-74 MIN DANG TANG MD November 07, 2024 12:29
--- NOTE | 2024-11-07 14:40 | ECG ---
[facility] Test Date: 2024-11-06 Test Time: 11:21:07 Pat Name: GUSTAVO LOW Department: ED Room: 0232T Gender: M Telephone Triage Nurse: ISAI : [id number] Requested By: QUIANA ANDERSON Order Number: [id number] Reading MD: Prabhu Harrell Measurements Intervals [place] Rate: 68 P: 0 DE: 242 QRS: 96 QRSD: 210 T: -80 QT: 483 QTc: 514 Interpretive Statements Sinus rhythm Ventricular premature complex Prolonged DE interval Consider left ventricular hypertrophy Repol abnrm suggests ischemia, lateral leads Prolonged QT interval Electronically Signed On 11-08-2024 20:59:00 PDT by Prabhu Harrell Please click the below link to view image of tracing.
[2024-11-07] MEDS: ACETAMINOPHEN 325 MG TAB PO PRN (16:02)
[2024-11-07] MEDS: metroNIDAZOLE 500MG/100ML 100 ML IV ONE (16:45)
[2024-11-07] MEDS: VANCOMYCIN HCL 125 MG CAP PO SCH (17:51)
[2024-11-07] MEDS: GABAPENTIN 300 MG CAP PO SCH (21:56)
[2024-11-07] MEDS: metroNIDAZOLE 500MG/100ML 100 ML IV SCH (21:58)
[2024-11-08] VITALS (8 sets, daily range): BP systolic 89–110; BP diastolic 48–69; PULSE 64–80; RESP 16–18; TEMP 97.6–97.9; O2SAT 92–100
--- NOTE | 2024-11-08 08:53 | DVHPN2 ---
Reviewed: Care Plan, H&P, Labs, Medications, Previous Orders, Radiology Changes from previous H/P or p: No Changes Objective Vitals Vital Signs Date Time Temp Pulse Resp B/P (MAP) Pulse Ox O2 Delivery O2 Flow Rate FiO2 11/08/24 05:00 97.9 73 17 95/53 (67) 92 97.9 11/07/24 20:00 Room Air* 0 21 Intake/Output Intake and Output 11/08/24 07:00 Intake Total 1500 ml Output Total 550 ml Balance 950 ml Intake Oral 1400 ml IV Total 100 ml Output Urine Total 550 ml # Bowel Movements 3 Medications Current Medications Medications Dose Ordered Sig/Deny Route Start Time Stop Time Status Last Admin Dose Admin Diagnostic Test (Pha) 1 strip ACHS 11/06/24 17:00 11/08/24 06:06 1 STRIP Insulin Human Regular ACHS SC 11/06/24 17:00 11/08/24 06:07 2 UNITS Dextrose 50 ml UD PRN IV 11/06/24 13:30 Ondansetron HCl 4 mg Q4HP PRN IV 11/06/24 13:30 Acetaminophen 650 mg Q6HP PRN PO 11/06/24 13:30 11/07/24 16:02 650 MG Nitroglycerin 0.4 mg Q5MINP PRN SL 11/06/24 13:30 Morphine Sulfate 2 mg Q30M PRN IV 11/06/24 13:30 Amiodarone HCl 200 mg DAILY PO 11/07/24 10:00 11/07/24 09:37 200 MG Apixaban 2.5 mg BID PO 11/06/24 22:00 11/07/24 21:56 2.5 MG Aspirin 81 mg DAILY PO 11/07/24 10:00 11/07/24 09:38 81 MG Carvedilol 12.5 mg BID PO 11/06/24 22:00 11/07/24 21:57 12.5 MG Famotidine 20 mg DAILY PO 11/07/24 10:00 11/07/24 09:38 20 MG Famotidine 20 mg HS PO 11/06/24 22:00 UNV Furosemide 20 mg DAILY PO 11/07/24 10:00 11/07/24 10:01 20 MG Hydralazine HCl 25 mg DAILY PO 11/07/24 10:00 Metoprolol Tartrate 25 mg BID PO 11/06/24 22:00 11/07/24 21:57 25 MG Tamsulosin HCl 0.4 mg DAILY PO 11/07/24 10:00 11/07/24 09:38 0.4 MG Tramadol HCl 50 mg Q8HPRN PRN PO 11/06/24 14:15 Patient Own Medication 1 tab DAILY PO 11/07/24 10:00 UNV Patient Own Medication 1 tab QPM PO 11/06/24 18:00 UNV Patient Own Medication 1 tab DAILY PO 11/07/24 10:00 UNV Patient Own Medication 1 tab DAILY PO 11/07/24 10:00 UNV Patient Own Medication 1 tab QAM PO 11/07/24 07:00 UNV Patient Own Medication 1 tab QPM PO 11/06/24 18:00 UNV Ceftriaxone Sodium 50 ml @ 100 mls/hr DAILY@09 IV 11/06/24 14:30 11/07/24 09:36 100 MLS/HR Atorvastatin Calcium 80 mg HS PO 11/06/24 22:00 11/07/24 21:56 80 MG Zolpidem Tartrate 10 mg QHSP PRN PO 11/06/24 15:45 Ferrous Sulfate 325 mg QAM PO 11/07/24 07:00 11/08/24 06:08 325 MG Cholecalciferol 2,000 unit DAILY PO 11/07/24 10:00 Citalopram Hydrobromide 20 mg DAILY PO 11/07/24 10:00 11/07/24 09:37 20 MG Gabapentin 300 mg HS PO 11/07/24 22:00 11/07/24 21:56 300 MG Metronidazole 100 ml @ 100 mls/hr Q8HR IV 11/07/24 22:00 11/08/24 06:08 100 MLS/HR Vancomycin HCl 125 mg QID PO 11/07/24 18:00 11/08/24 06:08 125 MG Laboratory Results Laboratory Tests 11/07/24 04:56 Urinalysis Test 11/06/24 12:28 Urine Color Light-yellow (Yellow) Urine Clarity Turbid (Clear) H Urine pH 6.0 (5.0-9.0) Urine Specific [place] 1.019 (1.001-1.035) Urine Protein 1+ (Negative) H Urine Ketones Negative (Negative) Urine Blood Negative /uL (Negative) Urine Nitrite 2+ (Negative) H Urine Bilirubin Negative (Negative) Urine Urobilinogen Normal mg/dL (Negative) Urine Leukocyte Esterase 3+ /uL (Negative) Urine RBC 661 /hpf (0 - 3) Urine Microscopic WBC 80 /HPF (0-3) H Urine Squamous Epithelial Cells None seen /hpf (<5) Urine Bacteria Few /hpf (None Seen) H Urine Yeast (Budding) Many /hpf (None Seen) Urine Glucose 3+ mg/dL (Normal) H Microbiology Microbiology Date/Time Source Procedure Growth Status 11/07/24 10:45 Stool Clostridium difficile Toxin Assay - Final Complete 11/06/24 20:40 Nose MRSA Screen - Final Complete 11/06/24 11:25 Blood Blood Culture - Preliminary NO GROWTH AFTER 24 HOURS OF INCUBATION. Resulted Labs and/or images reviewed: Labs reviewed by me, Image(s) reviewed by me Assessment/Plan Assessment/Plan Septic shock secondary to urinary tract infection: Blood cultures negative, urine cultures pending, continue Rocephin C diff colitis vancomycin p.o. Flagyl IV Syncope Acute on chronic kidney disease Chronic anemia Transaminitis Uncontrolled diabetes History of pacemaker placed six months ago at [facility] CAD status post CABG Hypertension Hypercholesterolemia History of CVA x2 with no deficits AFib History of left hip surgery in [facility] History of prostate cancer status post prostate surgery with implants chemotherapy, status post suprapubic cath Patient came from [place] post acute Daughter Iirna [phone] at bedside Time spent 65 minutes Patient is full code Advanced care planning time 20 minutes Plan discussed with: Patient My Orders Orders - DANG TANG MD Procedure Category Date Status Time Urine Bacterial CRISTINA 11/07/24 Logged Culture 12:22 Gabapentin Capsule PHA 11/07/24 In Process (Neurontin Capsule) 22:00 Metronidazole PHA 11/07/24 In Process 500mg/100ml (Flagyl 22:00 Vancomycin Po PHA 11/07/24 In Process 18:00 Date of Service: November 08, 2024 Billing Provider: DANG TANG MD Common Visit Codes: [id number] CARE 30-74 MIN DANG TANG MD November 08, 2024 08:53
[2024-11-08] MEDS: SODIUM CHLORIDE 0.9% 1,000 ML IV SCH (12:30)
[2024-11-09] VITALS (9 sets, daily range): BP systolic 96–118; BP diastolic 51–75; PULSE 60–102; RESP 14–18; TEMP 97.3–98.2; O2SAT 96–100
--- NOTE | 2024-11-09 10:13 | DVHPN2 ---
Reviewed: Care Plan, H&P, Labs, Medications, Previous Orders, Radiology Changes from previous H/P or p: No Changes Objective Vitals Vital Signs Date Time Temp Pulse Resp B/P (MAP) Pulse Ox O2 Delivery O2 Flow Rate FiO2 11/09/24 09:14 96/54 11/09/24 09:13 60 11/09/24 09:00 97.8 16 98 97.8 11/09/24 07:43 Room Air* 0 21 Intake/Output Intake and Output 11/09/24 07:00 Intake Total 1420 ml Output Total 700 ml Balance 720 ml Intake Oral 1320 ml IV Total 100 ml Output Urine Total 700 ml # Bowel Movements 3 Medications Current Medications Medications Dose Ordered Sig/Deny Route Start Time Stop Time Status Last Admin Dose Admin Diagnostic Test (Pha) 1 strip ACHS 11/06/24 17:00 11/09/24 06:12 1 STRIP Insulin Human Regular ACHS SC 11/06/24 17:00 11/09/24 06:11 2 UNITS Dextrose 50 ml UD PRN IV 11/06/24 13:30 Ondansetron HCl 4 mg Q4HP PRN IV 11/06/24 13:30 Acetaminophen 650 mg Q6HP PRN PO 11/06/24 13:30 11/08/24 09:11 650 MG Nitroglycerin 0.4 mg Q5MINP PRN SL 11/06/24 13:30 Morphine Sulfate 2 mg Q30M PRN IV 11/06/24 13:30 Amiodarone HCl 200 mg DAILY PO 11/07/24 10:00 11/07/24 09:37 200 MG Apixaban 2.5 mg BID PO 11/06/24 22:00 11/09/24 09:12 2.5 MG Aspirin 81 mg DAILY PO 11/07/24 10:00 11/09/24 09:11 81 MG Carvedilol 12.5 mg BID PO 11/06/24 22:00 11/07/24 21:57 12.5 MG Famotidine 20 mg DAILY PO 11/07/24 10:00 11/09/24 09:10 20 MG Famotidine 20 mg HS PO 11/06/24 22:00 UNV Furosemide 20 mg DAILY PO 11/07/24 10:00 11/09/24 09:11 20 MG Hydralazine HCl 25 mg DAILY PO 11/07/24 10:00 Metoprolol Tartrate 25 mg BID PO 11/06/24 22:00 11/08/24 21:39 25 MG Tamsulosin HCl 0.4 mg DAILY PO 11/07/24 10:00 11/09/24 09:23 0.4 MG Tramadol HCl 50 mg Q8HPRN PRN PO 11/06/24 14:15 Patient Own Medication 1 tab DAILY PO 11/07/24 10:00 UNV Patient Own Medication 1 tab QPM PO 11/06/24 18:00 UNV Patient Own Medication 1 tab DAILY PO 11/07/24 10:00 UNV Patient Own Medication 1 tab DAILY PO 11/07/24 10:00 UNV Patient Own Medication 1 tab QAM PO 11/07/24 07:00 UNV Patient Own Medication 1 tab QPM PO 11/06/24 18:00 UNV Ceftriaxone Sodium 50 ml @ 100 mls/hr DAILY@09 IV 11/06/24 14:30 11/09/24 09:07 100 MLS/HR Atorvastatin Calcium 80 mg HS PO 11/06/24 22:00 11/08/24 21:38 80 MG Zolpidem Tartrate 10 mg QHSP PRN PO 11/06/24 15:45 Ferrous Sulfate 325 mg QAM PO 11/07/24 07:00 11/09/24 09:11 325 MG Cholecalciferol 2,000 unit DAILY PO 11/07/24 10:00 11/09/24 09:10 2,000 UNIT Citalopram Hydrobromide 20 mg DAILY PO 11/07/24 10:00 11/09/24 09:11 20 MG Gabapentin 300 mg HS PO 11/07/24 22:00 11/08/24 21:39 300 MG Metronidazole 100 ml @ 100 mls/hr Q8HR IV 11/07/24 22:00 11/09/24 06:12 100 MLS/HR Vancomycin HCl 125 mg QID PO 11/07/24 18:00 11/09/24 06:11 125 MG Sodium Chloride 1,000 ml @ 150 mls/hr Q6H40M IV 11/08/24 12:30 11/09/24 08:30 150 MLS/HR Laboratory Results Laboratory Tests 11/07/24 04:56 Urinalysis Test 11/06/24 12:28 Urine Color Light-yellow (Yellow) Urine Clarity Turbid (Clear) H Urine pH 6.0 (5.0-9.0) Urine Specific [place] 1.019 (1.001-1.035) Urine Protein 1+ (Negative) H Urine Ketones Negative (Negative) Urine Blood Negative /uL (Negative) Urine Nitrite 2+ (Negative) H Urine Bilirubin Negative (Negative) Urine Urobilinogen Normal mg/dL (Negative) Urine Leukocyte Esterase 3+ /uL (Negative) Urine RBC 661 /hpf (0 - 3) Urine Microscopic WBC 80 /HPF (0-3) H Urine Squamous Epithelial Cells None seen /hpf (<5) Urine Bacteria Few /hpf (None Seen) H Urine Yeast (Budding) Many /hpf (None Seen) Urine Glucose 3+ mg/dL (Normal) H Microbiology Microbiology Date/Time Source Procedure Growth Status 11/07/24 10:45 Stool Clostridium difficile Toxin Assay - Final Complete 11/06/24 20:40 Nose MRSA Screen - Final Complete 11/06/24 11:25 Blood Blood Culture - Preliminary NO GROWTH AFTER 48 HOURS OF INCUBATION. Resulted Labs and/or images reviewed: Labs reviewed by me, Image(s) reviewed by me Assessment/Plan Assessment/Plan Septic shock secondary to urinary tract infection: Blood cultures negative, urine cultures pending, continue Rocephin C diff colitis vancomycin p.o. Flagyl IV Syncope Acute on chronic kidney disease Chronic anemia Transaminitis Uncontrolled diabetes History of pacemaker placed six months ago at [facility] CAD status post CABG Hypertension Hypercholesterolemia History of CVA x2 with no deficits AFib History of left hip surgery in [facility] History of prostate cancer status post prostate surgery with implants chemotherapy, status post suprapubic cath Patient came from [place] post acute Daughter Irina [phone] at bedside Time spent 65 minutes Patient is full code Advanced care planning time 20 minutes Plan discussed with: Patient My Orders Orders - DANG TANG MD Procedure Category Date Status Time Sodium Chloride 0.9% PHA 11/08/24 In Process 12:30 Electrocardigram EKG 11/08/24 Logged 21:48 Date of Service: November 09, 2024 Billing Provider: DANG TANG MD Common Visit Codes: [id number] INP/OBS CARE(HIGH) DANG TANG MD November 09, 2024 10:13
[2024-11-10] VITALS (9 sets, daily range): BP systolic 91–108; BP diastolic 50–60; PULSE 60–69; RESP 16–18; TEMP 97.4–98.4; O2SAT 95–97
--- NOTE | 2024-11-10 09:52 | DVHINCON2 ---
JERSON PEREZ [facility] 11/10/24 0952: Date Seen: November 10, 2024 Referring Physician MOLLY Vidales Reason for Consultation Syncope History of Present Illness This is a 74-year-old male patient who presents to the emergency room status post syncopal episode. The patient comes from [place] [facility] after recovering from recent hip surgery. The patient reports he was walking down the hallway with physical therapy at [place] [facility], when suddenly he began to feel lightheaded and generalized weakness. He can not recall if he lost any consciousness or hit his head. Staff [place] [facility] called EMS and the patient was brought to the emergency room for further evaluation. Initial twelve lead electrocardiogram reveals sinus rhythm with first-degree atrioventricular block, PVCs, left ventricular hypertrophy, and prolonged QTc interval. The patient denies any cardiac symptoms. Troponin levels have been negative. Significant past medical history includes coronary artery disease status post quadruple vessel bypass (on ASA), congestive heart failure, presence of ICD (Medtronic), paroxysmal atrial fibrillation (on amiodarone and low-dose Eliquis), hypertension, dyslipidemia, CVA with left-sided deficit, type 2 diabetes mellitus, and prostate cancer status post prostatectomy. The patient sees steel pourer in the outpatient setting (per medication reconciliation list). Past Medical History Past medical history reviewed. No other significant than mentioned above. Past Surgical History Quadruple vessel bypass 15 years ago Left hip surgery approximately four weeks ago ICD implantation Family History: Patient reports no known family medical history. Family History Family history reviewed. Social History Denies the use of tobacco, alcohol or illicit drugs. Allergies: Coded Allergies: NO KNOWN ALLERGIES (Unverified , 11/16/15) Home Meds Reported Medications Apixaban Base (ELIQUIS) 2.5 Mg Tab, 1 TAB PO BID 11/06/24 Gabapentin (Gabapentin) 300 Mg Cap, CAP PO 11/06/24 Lisinopril (Lisinopril) 20 Mg Tab, 1 TAB PO DAILY 11/06/24 Cholecalciferol (Gnp Vitamin D) 1,000 Unit Tab, 1 TAB PO DAILY 11/06/24 Ferrous Sulfate (Gnp Iron) 325 Mg Tab, 1 TAB PO QAM 11/06/24 Furosemide (Furosemide) 20 Mg Tab, 1 TAB PO DAILY 11/06/24 Famotidine (Famotidine) 20 Mg Tab, 1 TAB PO DAILY 11/06/24 Escitalopram Oxalate (ESCITALOPRAM OXALATE) 10 Mg Tab, 1 TAB PO DAILY 11/06/24 Atorvastatin Calcium (ATORVASTATIN CALCIUM) 80 Mg Tab, 1 TAB PO DAILY 11/06/24 Amiodarone HCl (Amiodarone HCl) 200 Mg Tab, 1 TAB PO DAILY 11/06/24 Carvedilol (Carvedilol) 12.5 Mg Tab, 1 TAB PO BID 11/06/24 Hydralazine HCl (Hydralazine HCl) 25 Mg Tab, TAB PO 11/06/24 Famotidine (PEPCID TABLET) 20 Mg Tb, 1 TAB PO HS, #60 TAB 5 Refills 11/16/15 Cholecalciferol (VITAMIN D3) 2,000 Unit Tab, 1 TAB PO DAILY, #30 TAB 5 Refills 11/16/15 Metoprolol Tartrate (Metoprolol Tartrate) 25 Mg Tab, 1 TAB PO BID, #180 TAB 1 Refill 11/16/15 Aspirin (Aspir-81) 81 Mg Tab, 1 TAB PO DAILY, #30 TAB 5 Refills 11/16/15 Tamsulosin Hcl (Tamsulosin Hcl) 0.4 Mg Cap, 1 CAP PO DAILY, #30 CAP 5 Refills 11/16/15 Atorvastatin Calcium (Lipitor) 40 Mg Tab, 1 TAB PO QPM, #90 TAB 1 Refill 11/16/15 Zolpidem Tartrate (Ambien) 10 Mg Tab, 1 TAB PO QPM, #30 TAB 5 Refills 11/16/15 Tramadol Hcl (Tramadol Hcl) 50 Mg Tab, 50 MG PO Q8HPRN PRN for MODERATE PAIN, MG 11/16/15 Home Meds Home medications reviewed. Review of Systems Constitutional: No symptom reported Ears, Nose, & Throat: No symptom reported Eyes: No symptom reported Neurological: Syncope Pulmonary/Respiratory: No symptoms reported Cardiovascular: No symptom reported Gastrointestinal: No symptom reported Genitourinary: No symptom reported Musculoskeletal: No symptom reported Skin: No symptom reported Psychiatric: No symptom reported Endocrine: No symptom reported Hematologic/Lymphatic: No symptom reported Vital Signs Vital Signs Date Time Temp Pulse Resp B/P (MAP) Pulse Ox O2 Delivery O2 Flow Rate FiO2 11/10/24 09:27 108/57 11/10/24 09:27 62 11/10/24 07:57 Room Air* 0 21 11/10/24 05:00 98.0 16 95 98.0 Physical Exam General Appearance: Cooperative. Well-developed. Well-nourished. No acute distress. Pulmonary/Respiratory: Clear, bilateral breaths sounds. Cardiovascular/Chest: Regular rate and rhythm. Peripheral Pulses: 2+ Radial (R). 2+ Radial (L). 2+ Pedal (R). 2+ Pedal (L) Abdominal Exam: Normal bowel sounds. Ankle Exam: Negative ankle edema Lower extremities: Negative lower extremity edema Neuro/Mental Status: A/OX4, coherent. Thoughts/Psych: Normal thought pattern. Appropriate mood and affect. Good judgment and insight. Appearance: No acute distress. Skin Exam: Normal inspection. Normal color. Warm and dry. Labs/Diagnostic Data Labs Test 11/10/24 06:12 11/07/24 04:56 11/06/24 12:28 11/06/24 11:25 Range/Units POC Glucose 103 70-106 mg/dl White Blood Count 14.8 H 4.4-10.8 10^3/uL Red Blood Count 3.99 L 4.5-5.90 10^6/uL Hemoglobin 11.2 L 13.5-17.5 g/dL Hematocrit 34.3 L 41.0-53.0 % Mean Corpuscular Volume 86.0 80.0-100.0 fL Mean Corpuscular Hemoglobin 28.0 28.0-32.0 pg Mean Corpuscular Hemoglobin Concent 32.5 32.0-36.0 g/dL Red Cell Distribution Width 14.9 H 11.8-14.3 % Platelet Count 275 140-450 10^3/uL Mean Platelet Volume 7.9 6.9-10.8 fL Neutrophils (%) (Auto) 87.2 H 37.0-80.0 % Lymphocytes (%) (Auto) 6.1 L 10.0-50.0 % Monocytes (%) (Auto) 5.9 0.0-12.0 % Eosinophils (%) (Auto) 0.5 0.0-7.0 % Basophils (%) (Auto) 0.3 0.0-2.0 % Neutrophils # (Auto) 12.9 H 1.6-8.6 10 ^3/uL Lymphocytes # (Auto) 0.9 0.4-5.4 10 ^3/uL Monocytes # (Auto) 0.9 0-1.3 10 ^3/uL Eosinophils # (Auto) 0.1 0-0.8 10 ^3/uL Basophils # (Auto) 0 0-0.2 10 ^3/uL Nucleated Red Blood Cells 0.0 % Sodium Level 139 136-145 mmol/L Potassium Level 3.9 3.5-5.1 mmol/L Chloride Level 107 98-107 mmol/L Carbon Dioxide Level 20 20-31 mmol/L Anion Gap 12 5-15 Blood Urea Nitrogen 46 H 9-23 mg/dL Creatinine 1.76 H 0.700-1.30 mg/dL Glomerular Filtration Rate Calc 40 >90 mL/min BUN/Creatinine Ratio 26.1 H 10.0-20.0 Serum Glucose 182 H 74-106 mg/dL Calcium Level 9.1 8.7-10.4 mg/dL Total Bilirubin 0.4 0.2-1.0 mg/dL Aspartate Amino Transferase (AST) 184 H 13-40 U/L Alanine Aminotransferase (ALT) 262 H 7-40 U/L Alkaline Phosphatase 110 46-116 U/L Total Protein 5.8 5.7-8.2 g/dL Albumin 3.5 3.2-4.8 g/dL Urine Color Light-yellow Yellow Urine Clarity Turbid H Clear Urine pH 6.0 5.0-9.0 Urine Specific [place] 1.019 1.001-1.035 Urine Protein 1+ H Negative Urine Ketones Negative Negative Urine Blood Negative Negative /uL Urine Nitrite 2+ H Negative Urine Bilirubin Negative Negative Urine Urobilinogen Normal Negative mg/dL Urine Leukocyte Esterase 3+ Negative /uL Urine RBC 661 0 - 3 /hpf Urine Microscopic WBC 80 H 0-3 /HPF Urine Squamous Epithelial Cells None seen <5 /hpf Urine Bacteria Few H None Seen /hpf Urine Yeast (Budding) Many None Seen /hpf Urine Glucose 3+ H Normal mg/dL Troponin I High Sensitivity 29 </=54 ng/L Test 11/06/24 11:05 11/06/24 10:25 Range/Units Lactic Acid Level 1.7 0.4-2.0 mmol/L Hemoglobin A1c 6.2 H <5.7 % A1C B-Type Natriuretic Peptide 467.71 0-100 pg/mL Microbiology Date/Time Source Procedure Growth Status 11/08/24 10:16 Voided Urine Urine Culture - Preliminary Escherichia coli Yeast, not Bailey albicans Resulted 11/07/24 10:45 Stool Clostridium difficile Toxin Assay - Final Complete 11/06/24 20:40 Nose MRSA Screen - Final Complete 11/06/24 11:25 Blood Blood Culture - Preliminary NO GROWTH AFTER 72 HOURS OF INCUBATION. Resulted Assessment Syncope, rule out cardiac etiology Coronary artery disease status post quadruple vessel bypass (on ASA) Chronic compensated HFrEF, NYHA class II Presence of ICD (Medtronic) Paroxysmal atrial fibrillation, stage 3A (on amiodarone and low-dose Eliquis) Hypertension Dyslipidemia [id number] mitral and tricuspid valve regurgitation Acute kidney injury versus chronic kidney disease Type 2 diabetes mellitus Urinary tract infection Clostridium difficile colitis History of CVA with left-sided deficits History of prostate cancer status post prostatectomy Plan/Recommendation We will continue with the following plan/recommendations (Dr. Bowser): * Transthoracic echocardiogram reveals EF of 15%, RVSP 43 mmHg * Initiate guideline directed medical therapy for CHF as renal function permits * Strict intake and output, daily weights, maintain fluid restriction * ICD device interrogation * Bilateral carotid ultrasound * Orthostatic vital signs * [id number] VASc score: 8 points, HAS-BLED score: 3 points * Continue home low-dose Eliquis * Hold beta mylene given bradycardia episodes on monitor (awaiting device interrogation) * Continue home dose antiarrhythmic agent, oral amiodarone * Antiplatelet therapy and lipid-lowering agent * Check labs: Magnesium, TSH Patient plan discussed with . Thank you for allowing us to care for this patient. Please call with any questions or concerns. Critical care time spent: 44 minutes This medical document was created using an electronic medical record system with voice recognition software and computerized dictation system. Although this document has been carefully reviewed, there might still be some phonetic and typographical errors. Occasional wrong-word or ``sound-alike substitutions may have occurred due to the inherent limitations of voice recognition software. These areas are purely typographical due to imperfections of the software programs and do not reflect any compromise in the patient's medical care. Please read the chart carefully and recognize, using context, where these substitutions have occurred. Plan discussed with: Patient NYHA Physical activity limitations: Class2(Slight)fatigue,sob (palpitatns, angina w activityv) Date of Service: November 10, 2024 Billing Provider: JERSON PEREZ Cardiology Common Codes: 08666-[id number] INP/OBS CARE (High) Cardiology Consultation Codes: [id number] CONSULT <45MIN ORLANDO BOWSER MD 11/11/24 1224: Family History: Patient reports no known family medical history. Allergies: Coded Allergies: NO KNOWN ALLERGIES (Unverified , 11/16/15) Home Meds Reported Medications Apixaban Base (ELIQUIS) 2.5 Mg Tab, 1 TAB PO BID 11/06/24 Gabapentin (Gabapentin) 300 Mg Cap, CAP PO 11/06/24 Lisinopril (Lisinopril) 20 Mg Tab, 1 TAB PO DAILY 11/06/24 Cholecalciferol (Gnp Vitamin D) 1,000 Unit Tab, 1 TAB PO DAILY 11/06/24 Ferrous Sulfate (Gnp Iron) 325 Mg Tab, 1 TAB PO QAM 11/06/24 Furosemide (Furosemide) 20 Mg Tab, 1 TAB PO DAILY 11/06/24 Famotidine (Famotidine) 20 Mg Tab, 1 TAB PO DAILY 11/06/24 Escitalopram Oxalate (ESCITALOPRAM OXALATE) 10 Mg Tab, 1 TAB PO DAILY 11/06/24 Atorvastatin Calcium (ATORVASTATIN CALCIUM) 80 Mg Tab, 1 TAB PO DAILY 11/06/24 Amiodarone HCl (Amiodarone HCl) 200 Mg Tab, 1 TAB PO DAILY 11/06/24 Carvedilol (Carvedilol) 12.5 Mg Tab, 1 TAB PO BID 11/06/24 Hydralazine HCl (Hydralazine HCl) 25 Mg Tab, TAB PO 11/06/24 Famotidine (PEPCID TABLET) 20 Mg Tb, 1 TAB PO HS, #60 TAB 5 Refills 11/16/15 Cholecalciferol (VITAMIN D3) 2,000 Unit Tab, 1 TAB PO DAILY, #30 TAB 5 Refills 11/16/15 Metoprolol Tartrate (Metoprolol Tartrate) 25 Mg Tab, 1 TAB PO BID, #180 TAB 1 Refill 11/16/15 Aspirin (Aspir-81) 81 Mg Tab, 1 TAB PO DAILY, #30 TAB 5 Refills 11/16/15 Tamsulosin Hcl (Tamsulosin Hcl) 0.4 Mg Cap, 1 CAP PO DAILY, #30 CAP 5 Refills 11/16/15 Atorvastatin Calcium (Lipitor) 40 Mg Tab, 1 TAB PO QPM, #90 TAB 1 Refill 11/16/15 Zolpidem Tartrate (Ambien) 10 Mg Tab, 1 TAB PO QPM, #30 TAB 5 Refills 11/16/15 Tramadol Hcl (Tramadol Hcl) 50 Mg Tab, 50 MG PO Q8HPRN PRN for MODERATE PAIN, MG 11/16/15 Plan/Recommendation PT NOT SEEN PT MAY HAVE C DIFF HES ON 2 BB, NEEDS TO STOP THIS VERY POOR HISTORIAN, DOESNT EVEN KNOW NAME OF HIS CARDS GET ICD CHECK AND ASSESS JERSON PEREZ November 10, 2024 09:52 ORLANDO BOWSER MD November 11, 2024 12:24
--- NOTE | 2024-11-10 10:59 | DVHPN2 ---
Reviewed: Care Plan, H&P, Labs, Medications, Previous Orders, Radiology Changes from previous H/P or p: No Changes Objective Vitals Vital Signs Date Time Temp Pulse Resp B/P (MAP) Pulse Ox O2 Delivery O2 Flow Rate FiO2 11/10/24 10:00 97.6 62 106/56 (73) 96 97.6 107/60 (76) 11/10/24 07:57 Room Air* 0 21 11/10/24 05:00 16 Intake/Output Intake and Output 11/10/24 07:00 Intake Total 1520 ml Output Total 400 ml Balance 1120 ml Intake Oral 1120 ml IV Total 400 ml Output Urine Total 400 ml # Voids 5 # Bowel Movements 5 Medications Current Medications Medications Dose Ordered Sig/Deny Route Start Time Stop Time Status Last Admin Dose Admin Diagnostic Test (Pha) 1 strip ACHS 11/06/24 17:00 11/10/24 06:16 1 STRIP Insulin Human Regular ACHS SC 11/06/24 17:00 11/09/24 21:16 6 UNITS Dextrose 50 ml UD PRN IV 11/06/24 13:30 Ondansetron HCl 4 mg Q4HP PRN IV 11/06/24 13:30 Acetaminophen 650 mg Q6HP PRN PO 11/06/24 13:30 11/08/24 09:11 650 MG Nitroglycerin 0.4 mg Q5MINP PRN SL 11/06/24 13:30 Morphine Sulfate 2 mg Q30M PRN IV 11/06/24 13:30 Amiodarone HCl 200 mg DAILY PO 11/07/24 10:00 11/10/24 09:25 200 MG Apixaban 2.5 mg BID PO 11/06/24 22:00 11/10/24 09:25 2.5 MG Aspirin 81 mg DAILY PO 11/07/24 10:00 11/10/24 09:24 81 MG Carvedilol 12.5 mg BID PO 11/06/24 22:00 11/09/24 21:19 12.5 MG Famotidine 20 mg DAILY PO 11/07/24 10:00 11/10/24 09:28 20 MG Famotidine 20 mg HS PO 11/06/24 22:00 UNV Furosemide 20 mg DAILY PO 11/07/24 10:00 11/10/24 09:26 20 MG Hydralazine HCl 25 mg DAILY PO 11/07/24 10:00 Metoprolol Tartrate 25 mg BID PO 11/06/24 22:00 11/10/24 09:25 25 MG Tamsulosin HCl 0.4 mg DAILY PO 11/07/24 10:00 11/10/24 09:25 0.4 MG Tramadol HCl 50 mg Q8HPRN PRN PO 11/06/24 14:15 Patient Own Medication 1 tab DAILY PO 11/07/24 10:00 UNV Patient Own Medication 1 tab QPM PO 11/06/24 18:00 UNV Patient Own Medication 1 tab DAILY PO 11/07/24 10:00 UNV Patient Own Medication 1 tab DAILY PO 11/07/24 10:00 UNV Patient Own Medication 1 tab QAM PO 11/07/24 07:00 UNV Patient Own Medication 1 tab QPM PO 11/06/24 18:00 UNV Ceftriaxone Sodium 50 ml @ 100 mls/hr DAILY@09 IV 11/06/24 14:30 11/10/24 09:23 100 MLS/HR Atorvastatin Calcium 80 mg HS PO 11/06/24 22:00 11/09/24 21:18 80 MG Zolpidem Tartrate 10 mg QHSP PRN PO 11/06/24 15:45 Ferrous Sulfate 325 mg QAM PO 11/07/24 07:00 11/10/24 09:26 325 MG Cholecalciferol 2,000 unit DAILY PO 11/07/24 10:00 11/10/24 09:50 2,000 UNIT Citalopram Hydrobromide 20 mg DAILY PO 11/07/24 10:00 11/10/24 09:26 20 MG Gabapentin 300 mg HS PO 11/07/24 22:00 11/09/24 21:18 300 MG Metronidazole 100 ml @ 100 mls/hr Q8HR IV 11/07/24 22:00 11/10/24 06:16 100 MLS/HR Vancomycin HCl 125 mg QID PO 11/07/24 18:00 11/10/24 06:16 125 MG Sodium Chloride 1,000 ml @ 150 mls/hr Q6H40M IV 11/08/24 12:30 11/09/24 21:23 150 MLS/HR Laboratory Results Laboratory Tests 11/07/24 04:56 Urinalysis Test 11/06/24 12:28 Urine Color Light-yellow (Yellow) Urine Clarity Turbid (Clear) H Urine pH 6.0 (5.0-9.0) Urine Specific [place] 1.019 (1.001-1.035) Urine Protein 1+ (Negative) H Urine Ketones Negative (Negative) Urine Blood Negative /uL (Negative) Urine Nitrite 2+ (Negative) H Urine Bilirubin Negative (Negative) Urine Urobilinogen Normal mg/dL (Negative) Urine Leukocyte Esterase 3+ /uL (Negative) Urine RBC 661 /hpf (0 - 3) Urine Microscopic WBC 80 /HPF (0-3) H Urine Squamous Epithelial Cells None seen /hpf (<5) Urine Bacteria Few /hpf (None Seen) H Urine Yeast (Budding) Many /hpf (None Seen) Urine Glucose 3+ mg/dL (Normal) H Microbiology Microbiology Date/Time Source Procedure Growth Status 11/08/24 10:16 Voided Urine Urine Culture - Preliminary Escherichia coli Yeast, not Bailey albicans Resulted 11/07/24 10:45 Stool Clostridium difficile Toxin Assay - Final Complete 11/06/24 20:40 Nose MRSA Screen - Final Complete 11/06/24 11:25 Blood Blood Culture - Preliminary NO GROWTH AFTER 72 HOURS OF INCUBATION. Resulted Labs and/or images reviewed: Labs reviewed by me, Image(s) reviewed by me Assessment/Plan Assessment/Plan Septic shock secondary to urinary tract infection: Blood cultures negative, urine cultures growing E coli continue Rocephin also growing Bailey not yeast: Micafungin 100 mg IV daily C diff colitis vancomycin p.o. Flagyl IV Syncope Acute on chronic kidney disease Chronic anemia Transaminitis Uncontrolled diabetes History of pacemaker placed six months ago at [facility] CAD status post CABG Hypertension Hypercholesterolemia History of CVA x2 with no deficits AFib History of left hip surgery in [facility] History of prostate cancer status post prostate surgery with implants chemotherapy, status post suprapubic cath Patient came from [place] [facility] Daughter Irina [phone] at bedside Time spent 65 minutes Patient is full code Advanced care planning time 20 minutes Plan discussed with: Patient Date of Service: November 10, 2024 Billing Provider: DANG TANG MD Common Visit Codes: [id number] INP/OBS CARE(HIGH) DANG TANG MD November 10, 2024 10:59
[2024-11-10 14:59] LABS: Magnesium 1.4 mg/dL (1.6-2.6)
--- NOTE | 2024-11-10 15:31 | DVH ---
Carotid Duplex Date: 11/10/2024 01:48 PM Clinical History: syncope Comparison: None Technique: Duplex Doppler evaluation of the extracranial carotid and vertebral arteries including col or Doppler and spectral/pulsed waveform analysis was performed. Findings: Velocites and ratios within normal limits. IMPRESSION: No hemodynamically significant stenosis noted in the right carotid system. No hemodynamically significant stenosis noted in the left carotid system. Reference: Radiology 2003; 229:[id number]
[2024-11-11] VITALS (7 sets, daily range): BP systolic 98–134; BP diastolic 57–68; PULSE 60–71; RESP 16–18; TEMP 97.1–98.1; O2SAT 94–99
[2024-11-11 06:24] LABS: Sodium 141 mmol/L (136-145)
[2024-11-11 06:25] LABS: Anion Gap 8 (5-15); Carbon Dioxide 21 mmol/L (20-31)
[2024-11-11 06:30] LABS: BUN/Creatinine Ratio 19.1 (10.0-20.0)
[2024-11-11 06:36] LABS: Hematocrit 28.7 % (41.0-53.0); Hemoglobin 9.6 g/dL (13.5-17.5); Mean Corpuscular Hemoglobin 28.2 pg (28.0-32.0); Mean Corpuscular Hgb Conc. 33.6 g/dL (32.0-36.0); Mean Corpuscular Volume 83.9 fL (80.0-100.0); Platelet Count (auto) 267 10^3/uL (140-450); Red Blood Cells 3.42 10^6/uL (4.5-5.90); White Blood Cell 10.2 10^3/uL (4.4-10.8)
[2024-11-11 06:48] LABS: Blood Urea Nitrogen 27 mg/dL (9-23); Chloride 112 mmol/L (98-107); Glucose 147 mg/dL (74-106)
[2024-11-11 06:50] LABS: Potassium 2.5 mmol/L (3.5-5.1)
[2024-11-11 07:09] LABS: Basophils % (manual) 0 (0.0-2.0); Blast Cells 0; Myelocytes % 0; Promyelocytes % 0; Reactive Lymphocytes 0
[2024-11-11 08:34] LABS: Band Neutrophils % (manual) 4; Eosinophils % (manual) 1 (0-7); Lymphocytes % (manual) 9 (10.0-50.0); Metamyelocytes % 1; Monocytes % (manual) 12 (0-12); Platelet Estimate Adequate
--- NOTE | 2024-11-11 09:00 | ECG ---
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
[2024-11-11] MEDS: MAGNESIUM SULFATE 1GM/100ML 100 ML IV ONE (09:05)
[2024-11-11] MEDS: POTASSIUM CHL 20 Meq TABLET PO ONE (09:06)
[2024-11-11] MEDS ORDERED: MICAFUNGIN SODIUM 100 MG in SODIUM CHL 0.9% 100 ML IV SCH (10:00)
[2024-11-11] MEDS ORDERED: FLUCONAZOLE 200MG/100ML 100 ML IV SCH (10:00)
--- NOTE | 2024-11-11 11:24 | DVHDS2 ---
Discharge Summary Date of Admission November 06, 2024 at 13:26 Date of Discharge: November 11, 2024 Admitting Diagnosis Generalized weakness and diarrhea Wounds: None Labs/Diagnostic Data: Laboratory Results Test 11/11/24 05:48 11/11/24 05:20 11/10/24 14:21 11/07/24 04:56 POC Glucose 158 mg/dl (70-106) White Blood Count 10.2 10^3/uL (4.4-10.8) Red Blood Count 3.42 10^6/uL (4.5-5.90) Hemoglobin 9.6 g/dL (13.5-17.5) Hematocrit 28.7 % (41.0-53.0) Mean Corpuscular Volume 83.9 fL (80.0-100.0) Mean Corpuscular Hemoglobin 28.2 pg (28.0-32.0) Mean Corpuscular Hemoglobin Concent 33.6 g/dL (32.0-36.0) Red Cell Distribution Width 15.0 % (11.8-14.3) Platelet Count 267 10^3/uL (140-450) Mean Platelet Volume 8.0 fL (6.9-10.8) Neutrophils (%) (Auto) % (37.0-80.0) Lymphocytes (%) (Auto) % (10.0-50.0) Monocytes (%) (Auto) % (0.0-12.0) Basophils (%) (Auto) % (0.0-2.0) Neutrophils # (Auto) 10 ^3/uL (1.6-8.6) Lymphocytes # (Auto) 10 ^3/uL (0.4-5.4) Monocytes # (Auto) 10 ^3/uL (0-1.3) Differential Total Cells Counted 100.0 (100) Neutrophils % (Manual) 73 (37.0-80.0) Band Neutrophils % (Manual) 4 Lymphocytes % (Manual) 9 (10.0-50.0) Monocytes % (Manual) 12 (0-12) Eosinophils % (Manual) 1 (0-7) Basophils % (Manual) 0 (0.0-2.0) Metamyelocytes % (manual) 1 Myelocytes % (Manual) 0 Promyelocytes % (Manual) 0 Blast Cells % (Manual) 0 Reactive Lymphocytes 0 Platelet Estimate Adequate Sodium Level 141 mmol/L (136-145) Potassium Level 2.5 mmol/L (3.5-5.1) Chloride Level 112 mmol/L (98-107) Carbon Dioxide Level 21 mmol/L (20-31) Anion Gap 8 (5-15) Blood Urea Nitrogen 27 mg/dL (9-23) Creatinine 1.41 mg/dL (0.700-1.30) Glomerular Filtration Rate Calc 52 mL/min (>90) BUN/Creatinine Ratio 19.1 (10.0-20.0) Serum Glucose 147 mg/dL (74-106) Calcium Level 8.0 mg/dL (8.7-10.4) B-Type Natriuretic Peptide 400.02 pg/mL (0-100) Magnesium Level 1.4 mg/dL (1.6-2.6) Triglycerides Level 55 mg/dL (< 150) Cholesterol Level 63 mg/dL (< 200) LDL Cholesterol 17 mg/dL (< 100) HDL Cholesterol 28 mg/dL (40-59) Thyroid Stimulating Hormone (TSH) 2.56 uIU/mL (0.55-4.78) Eosinophils (%) (Auto) 0.5 % (0.0-7.0) Eosinophils # (Auto) 0.1 10 ^3/uL (0-0.8) Basophils # (Auto) 0 10 ^3/uL (0-0.2) Nucleated Red Blood Cells 0.0 % Total Bilirubin 0.4 mg/dL (0.2-1.0) Aspartate Amino Transferase (AST) 184 U/L (13-40) Alanine Aminotransferase (ALT) 262 U/L (7-40) Alkaline Phosphatase 110 U/L (46-116) Total Protein 5.8 g/dL (5.7-8.2) Albumin 3.5 g/dL (3.2-4.8) Test 11/06/24 12:28 11/06/24 11:25 11/06/24 11:05 11/06/24 10:25 Urine Color Light-yellow (Yellow) Urine Clarity Turbid (Clear) Urine pH 6.0 (5.0-9.0) Urine Specific [place] 1.019 (1.001-1.035) Urine Protein 1+ (Negative) Urine Ketones Negative (Negative) Urine Blood Negative /uL (Negative) Urine Nitrite 2+ (Negative) Urine Bilirubin Negative (Negative) Urine Urobilinogen Normal mg/dL (Negative) Urine Leukocyte Esterase 3+ /uL (Negative) Urine RBC 661 /hpf (0 - 3) Urine Microscopic WBC 80 /HPF (0-3) Urine Squamous Epithelial Cells None seen /hpf (<5) Urine Bacteria Few /hpf (None Seen) Urine Yeast (Budding) Many /hpf (None Seen) Urine Glucose 3+ mg/dL (Normal) Troponin I High Sensitivity 29 ng/L (</=54) Lactic Acid Level 1.7 mmol/L (0.4-2.0) Hemoglobin A1c 6.2 % A1C (<5.7) Other Laboratory Tests 11/11/24 05:20 Brief Hx & Hospital Course: 74-year-old male with a history of diabetes pacemaker placed six months ago at [facility] coronary artery disease status post CABG hypertension hypercholesterolemia history of CVA x2 with a no deficits atrial fibrillation status post recent left hip surgery in [facility] history of prostate cancer status post prostate surgery with the implant and chemotherapy status post suprapubic cath brought in from the [facility] for generalized weakness and altered mental status. Found to be in septic shock secondary to urinary tract infection. Blood cultures negative urine cultures grew E coli Rocephin was continued. Also growing Bailey placed on micafungin patient is tested positive for C diff. Placed on vancomycin p.o. and Flagyl IV. Patient is being discharged back to [facility] receive the above antibiotics for two weeks general condition satisfactory. Consults/Reason for consult None Operations or Procedures CT abdomen pelvis without contrast CT head Carotid ultrasound Condition at Discharge: Fair Final Diagnosis/Problems List Septic shock secondary to urinary tract infection: Blood cultures negative, urine cultures growing E coli continue Rocephin also growing Bailey not yeast: Micafungin 100 mg IV daily C diff colitis vancomycin p.o. Flagyl IV Syncope Acute on chronic kidney disease Chronic anemia Transaminitis Uncontrolled diabetes History of pacemaker placed six months ago at [facility] CAD status post CABG Hypertension Hypercholesterolemia History of CVA x2 with no deficits AFib History of left hip surgery in [facility] History of prostate cancer status post prostate surgery with implants chemotherapy, status post suprapubic cath Discharge Disposition: Residential Facility Discharge Instruct/Medications Diet: Cardiac 2g Na,low cholest Activity: Light activity Follow Up/Referral: Follow up with the [facility] Medications: Rocephin 1 g IV daily Micafungin 100 mg IV daily Both for two weeks 35 (Time taken for discharge summary 45 minutes) Discharge Statement: "Patient was advised to return to the ER or call 911 if any headaches, dizziness, shortness of breath, chest pain, abdominal pain, bleeding, fevers, or worsening of medical condition. Patient was counseled about treatment plan, medications, possible side effects, patientverbalized understanding. All questions were answered to the best of my ability. This discharge took greater then 30 minutes in planning, reviewing documentation, counseling the patient, and discussing with other team members." ASSESSMENT ASSESSMENT Hospital Course Improved Assessment Septic shock secondary to urinary tract infection: Blood cultures negative, urine cultures growing E coli continue Rocephin also growing Bailey not yeast: Micafungin 100 mg IV daily C diff colitis vancomycin p.o. Flagyl IV Syncope Acute on chronic kidney disease Chronic anemia Transaminitis Uncontrolled diabetes History of pacemaker placed six months ago at [facility] CAD status post CABG Hypertension Hypercholesterolemia History of CVA x2 with no deficits AFib History of left hip surgery in [facility] History of prostate cancer status post prostate surgery with implants chemotherapy, status post suprapubic cath Date of Service: November 11, 2024 Billing Provider: DANG TANG MD Common Visit Codes: 05005-KYF/OBS DISCH DAY >30min DANG TANG MD November 11, 2024 11:24
[2024-11-11] MEDS: MICAFUNGIN SODIUM 100 MG in SODIUM CHL 0.9% 100 ML IV SCH (11:59)
[2024-11-11 13:04] LABS: Potassium 2.8 mmol/L (3.5-5.1)
[2024-11-11 13:09] LABS: Magnesium 1.7 mg/dL (1.6-2.6)
--- NOTE | 2024-11-11 15:16 | ECG ---
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
== END 2024-11-11 18:45 | DRG 871 ==
LOC: EDBD 10:20 → ER 10:20 → OVERFLOW 13:26 → TELE-CENTR 18:31 → TELE-EAST 11-07 14:49
PROVIDERS: ADMIT Family Medicine; ATTEND Family Medicine
PROC: 05HC33Z Insertion of Infusion Device into Left Basilic Vein, Percutaneous Approach (ICD-10-PCS; principal; 2024-11-11)
PROC: B54NZZA Ultrasonography of Left Upper Extremity Veins, Guidance (ICD-10-PCS; 2024-11-11)
DX: A41.51 Sepsis due to Escherichia coli [E. coli] (principal); R65.21 Severe sepsis with septic shock; A04.72 Enterocolitis due to Clostridium difficile, not specified as recurrent; N39.0 Urinary tract infection, site not specified; I50.22 Chronic systolic (congestive) heart failure; I13.0 Hypertensive heart and chronic kidney disease with heart failure and stage 1 through stage 4 chronic kidney disease, or unspecified chronic kidney disease; D64.9 Anemia, unspecified; G90.89 Other disorders of autonomic nervous system; R74.01 Elevation of levels of liver transaminase levels; N18.9 Chronic kidney disease, unspecified; I48.0 Paroxysmal atrial fibrillation; I25.10 Atherosclerotic heart disease of native coronary artery without angina pectoris; I08.1 Rheumatic disorders of both mitral and tricuspid valves; E78.00 Pure hypercholesterolemia, unspecified; Z95.0 Presence of cardiac pacemaker; E10.22 Type 1 diabetes mellitus with diabetic chronic kidney disease; Z86.73 Personal history of transient ischemic attack (TIA), and cerebral infarction without residual deficits; Z90.79 Acquired absence of other genital organ(s); Z85.46 Personal history of malignant neoplasm of prostate; Z95.1 Presence of aortocoronary bypass graft; Z79.82 Long term (current) use of aspirin; Z79.899 Other long term (current) drug therapy
CPT/HCPCS: 36415; 70450; 71045; 76700; 80048; 80053; 80061; 81001; 82962; 83036; 83605; 83735; 83880; 84132; 84443; 84484; 85007; 85025; 85027; 87040; 87081; 87086; 87088; 87186; 87493; 93005; 93306; 93886; G0378; J1815; J2248; J3490